=== PATIENT | male | born 1950 | race Caucasian/White ===

== ENCOUNTER 2018-10-01 15:14 | Emergency (ER) | payer BC ==
--- NOTE | 2018-10-01 15:34 | EDM.PDOC ---
ED HPI GENERAL MEDICAL PROBLEM - General Stated Complaint: ETOH Time Seen by Provider: 10/01/18 15:25 - History of Present Illness INITIAL COMMENTS - FREE TEXT/NARRATIVE: pt comes from home with his sister, basically asking asking for help with alcohol cessation , pt has Hx of DM, COPD, and heavy alcoholism, tells me he quit taking his medications about 3 months ago, and has been drinking heavily day and night , report gen weakness and poor feeding, denies recent head injuries, or hallucination or any suicidal ideations pt denies any other medical concerns. - Related Data Allergies Allergy/AdvReac Type Severity Reaction Status Date / Time No Known Allergies Allergy Verified 11/20/13 10:20 Home Meds: Home Meds Levothyroxine 112 mcg PO DAILY 11/20/13 [History] atorvaSTATin [Lipitor] 80 mg PO BEDTIME 11/20/13 [History] buPROPion [Wellbutrin] 75 mg PO BID 08/31/15 [History] Albuterol Sulfate [Proair Hfa] 2 puff IH Q6HR PRN 10/01/18 [History] Aspirin [Halfprin] 81 mg PO DAILY 10/01/18 [History] Cholecalciferol (Vitamin D3) [Vitamin D3] 2,000 unit PO DAILY 10/01/18 [History] FLUoxetine [PROzac] 40 mg PO DAILY 10/01/18 [History] Gabapentin [Neurontin] 300 mg PO BEDTIME 10/01/18 [History] Insulin Aspart [NovoLOG] 15 units SQ DAILY 10/01/18 [History] Insulin Degludec [Tresiba Flextouch U-200] 50 units SQ BEDTIME 10/01/18 [History ] Tiotropium [Spiriva] 18 mcg INH DAILY 10/01/18 [History] Topiramate 50 mg PO BEDTIME 10/01/18 [History] Past Medical History HEENT History: Reports: Epistaxis Cardiovascular History: Reports: Hypertension Neurological History: Reports: Neuropathy, Diabetic Psychiatric History: Reports: Other (See Below) Endocrine/Metabolic History: Reports: Diabetes, Type II, Hypothyroidism - Past Surgical History HEENT Surgical History: Reports: Naso-Sinus Surgery GI Surgical History: Reports: Hernia, Inguinal Social & Family History - Family History Cardiac: Reports: CAD, Hypertension Musculoskeletal: Reports: RA Endocrine/Metabolic: Reports: Diabetes, type II, Hypothyroidism ED ROS GENERAL - Review of Systems Review Of Systems: See Below Constitutional: Reports: Fatigue HEENT: Reports: No Symptoms Respiratory: Reports: No Symptoms Cardiovascular: Reports: Dyspnea on Exertion GI/Abdominal: Reports: No Symptoms Musculoskeletal: Reports: No Symptoms Skin: Reports: No Symptoms Neurological: Reports: No Symptoms Psychiatric: Reports: Depression. Denies: Hallucinations, Homicidal Ideation, Suicidal Ideation ED EXAM, GENERAL - Physical Exam Exam: See Below Exam Limited By: Other (pt appear mildy intoxicated, he is alert and oriented here.) Eye Exam: Bilateral Eye: Normal Inspection Throat/Mouth: Other (dry oral mucosa noted. ) Neck: Normal Inspection Respiratory/Chest: No Respiratory Distress, Lungs Clear, Normal Breath Sounds Cardiovascular: Normal Peripheral Pulses, Regular Rate, Rhythm, No Edema GI/Abdominal: Normal Bowel Sounds, Soft, Non-Tender Course - Vital Signs Text/Narrative:: pt was hydrated here with 1 liter NS, pt remained cooperative. labs results were reviewed, TSH elevated , pt is medically stable for out- patient mng and for detox, pt has no signs of suicidality . pt to resume usual home meds, will help pt arrange for transfer to Detox also patient was advised to plan a follow up with PCP. - Orders/Labs/Meds Orders: Active Orders 24 hr Category Date Time Status Sodium Chloride 0.9% [Normal Saline] 1,000 ml Med 10/01/18 15:45 Active IV .BOLUS Medication Orders Sodium Chloride (Normal Saline) 1,000 mls @ 999 drops/hr IV .BOLUS ONE Stop: 10/02/18 06:45 Last Admin: 10/01/18 15:56 Dose: 999 drops/hr Labs: Laboratory Tests 10/01/18 10/01/18 10/01/18 Range/Units 15:45 15:45 15:45 WBC 4.4 L (4.5-12.0) X10-3/uL RBC 4.41 (4.30-5.75) x10(6)uL Hgb 16.7 (13.5-17.8) g/dL Hct 48.8 (30.0-51.3) % MCV 110.7 H (80-96) fL MCH 37.8 H (27.7-33.6) pg MCHC 34.1 (32.2-35.4) g/dL RDW 14.0 (11.5-15.5) % Plt Count 156 (125-369) X10(3)uL MPV 8.2 (7.4-10.4) fL Neut % (Auto) 52.7 (46-82) % Lymph % (Auto) 38.1 H (13-37) % [place] % (Auto) 5.9 (4-12) % Eos % (Auto) 2 (1.0-5.0) % Baso % (Auto) 1 (0-2) % Neut # (Auto) 2.3 (1.6-8.3) # Lymph # (Auto) 1.7 (0.6-5.0) # [place] # (Auto) 0.3 (0.0-1.3) # Eos # (Auto) 0.1 (0.0-0.8) # Baso # (Auto) 0.0 (0.0-0.2) # Sodium 139 (135-145) mmol/L Potassium 3.9 (3.5-5.3) mmol/L Chloride 100 (100-110) mmol/L Carbon Dioxide 24 (21-32) mmol/L BUN 5 L (7-18) mg/dL Creatinine 0.9 (0.70-1.30) mg/dL Est Cr Clr Drug Dosing TNP Estimated GFR (MDRD) > 60 (>60) BUN/Creatinine Ratio 5.6 L (9-20) Glucose 162 H (80-116) mg/dL Calcium 8.8 (8.6-10.2) mg/dL Total Bilirubin 1.0 (0.1-1.3) mg/dL AST 206 H* (5-25) IU/L ALT 95 H (12-36) U/L Alkaline Phosphatase 106 (56-112) IU/L Total Protein 7.2 (6.0-8.0) g/dL Albumin 3.7 (3.2-4.6) g/dL Globulin 3.5 g/dL Albumin/Globulin Ratio 1.1 TSH, Ultra Sensitive (0.36-3.74) IU/mL Urine Color (YELLOW) Urine Appearance (CLEAR) Urine pH (5.0-6.5) Ur Specific [place] (1.010-1.025) Urine Protein (NEGATIVE) mg/dL Urine Glucose (UA) (NORMAL) mg/dL Urine Ketones (NEGATIVE) mg/dL Urine Occult Blood (NEGATIVE) Urine Nitrite (NEGATIVE) Urine Bilirubin (NEGATIVE) Urine Urobilinogen (NEGATIVE) mg/dL Ur Leukocyte Esterase (NEGATIVE) Urine RBC (0-5) Urine WBC (0-5) Ur Squamous Epith Cells (NS,R,O) Urine Bacteria (NS) Urine Opiates Screen (NEGATIVE) Ur Oxycodone Screen (NEGATIVE) Ur Propoxyphene Screen (NEGATIVE) Ur Barbituates Screen (NEGATIVE) Ur Tricyclics Screen (NEGATIVE) Ur Phencyclidine Scrn (NEGATIVE) Ur Amphetamine Screen (NEGATIVE) Urine MDMA Screen (NEGATIVE) U Benzodiazepines Scrn (NEGATIVE) U Cocaine Metab Screen (NEGATIVE) U Marijuana (THC) Screen (NEGATIVE) Ethyl Alcohol 0.19 H* (<0.03) % 10/01/18 10/01/18 10/01/18 Range/Units 15:45 17:07 17:07 WBC (4.5-12.0) X10-3/uL RBC (4.30-5.75) x10(6)uL Hgb (13.5-17.8) g/dL Hct (30.0-51.3) % MCV (80-96) fL MCH (27.7-33.6) pg MCHC (32.2-35.4) g/dL RDW (11.5-15.5) % Plt Count (125-369) X10(3)uL MPV (7.4-10.4) fL Neut % (Auto) (46-82) % Lymph % (Auto) (13-37) % [place] % (Auto) (4-12) % Eos % (Auto) (1.0-5.0) % Baso % (Auto) (0-2) % Neut # (Auto) (1.6-8.3) # Lymph # (Auto) (0.6-5.0) # [place] # (Auto) (0.0-1.3) # Eos # (Auto) (0.0-0.8) # Baso # (Auto) (0.0-0.2) # Sodium (135-145) mmol/L Potassium (3.5-5.3) mmol/L Chloride (100-110) mmol/L Carbon Dioxide (21-32) mmol/L BUN (7-18) mg/dL Creatinine (0.70-1.30) mg/dL Est Cr Clr Drug Dosing Estimated GFR (MDRD) (>60) BUN/Creatinine Ratio (9-20) Glucose (80-116) mg/dL Calcium (8.6-10.2) mg/dL Total Bilirubin (0.1-1.3) mg/dL AST (5-25) IU/L ALT (12-36) U/L Alkaline Phosphatase (56-112) IU/L Total Protein (6.0-8.0) g/dL Albumin (3.2-4.6) g/dL Globulin g/dL Albumin/Globulin Ratio TSH, Ultra Sensitive 11.15 H* (0.36-3.74) IU/mL Urine Color Yellow (YELLOW) Urine Appearance Clear (CLEAR) Urine pH 5.0 (5.0-6.5) Ur Specific [place] 1.010 (1.010-1.025) Urine Protein Negative (NEGATIVE) mg/dL Urine Glucose (UA) Normal (NORMAL) mg/dL Urine Ketones 15 H (NEGATIVE) mg/dL Urine Occult Blood Negative (NEGATIVE) Urine Nitrite Negative (NEGATIVE) Urine Bilirubin Negative (NEGATIVE) Urine Urobilinogen Normal (NEGATIVE) mg/dL Ur Leukocyte Esterase Negative (NEGATIVE) Urine RBC Not seen (0-5) Urine WBC 0-5 (0-5) Ur Squamous Epith Cells Rare (NS,R,O) Urine Bacteria Rare H (NS) Urine Opiates Screen Negative (NEGATIVE) Ur Oxycodone Screen Negative (NEGATIVE) Ur Propoxyphene Screen Negative (NEGATIVE) Ur Barbituates Screen Negative (NEGATIVE) Ur Tricyclics Screen Negative (NEGATIVE) Ur Phencyclidine Scrn Negative (NEGATIVE) Ur Amphetamine Screen Negative (NEGATIVE) Urine MDMA Screen Negative (NEGATIVE) U Benzodiazepines Scrn Negative (NEGATIVE) U Cocaine Metab Screen Negative (NEGATIVE) U Marijuana (THC) Screen Positive H (NEGATIVE) Ethyl Alcohol (<0.03) % Meds: Medications Generic Name Dose Route Start Last Admin Trade Name Freq PRN Reason Stop Dose Admin Sodium Chloride 1,000 mls @ 999 drops/hr 10/01/18 15:45 10/01/18 15:56 Normal Saline IV 10/02/18 06:45 999 drops/hr .BOLUS ONE Administration Departure - Departure Time of Disposition: 18:32 Disposition: DC/Tfer to Other 70 Clinical Impression: Alcohol abuse - Discharge Information Referrals: Cholo Magallon MD [Primary Care Provider] - - My Orders Last 24 Hours: My Active Orders 10/01/18 15:45 Sodium Chloride 0.9% [Normal Saline] 1,000 ml IV .BOLUS - Assessment/Plan Last 24 Hours: My Active Orders 10/01/18 15:45 Sodium Chloride 0.9% [Normal Saline] 1,000 ml IV .BOLUS
[2018-10-01] MEDS ORDERED: Sodium Chloride 0.9% 1,000 ML IV ONE (15:45)
[2018-10-01 20:45] VITALS: BP 121/78
== END 2018-10-01 18:59 | disposition other institution (70) ==
LOC: FB.ED 15:14
DX: F10.20 Alcohol dependence, uncomplicated (principal); I10 Essential (primary) hypertension; E11.9 Type 2 diabetes mellitus without complications; E03.9 Hypothyroidism, unspecified; E11.40 Type 2 diabetes mellitus with diabetic neuropathy, unspecified; Z79.899 Other long term (current) drug therapy; Z79.4 Long term (current) use of insulin
CPT/HCPCS: 36415; 80053; 80305; 81001; 84443; 85025; 96360; 99284; G0480; J7030

== ENCOUNTER 2023-02-03 04:08 | Inpatient (IN) | payer MEDICARE, OTHER ==
[2023-02-03] MEDS ORDERED: Ondansetron 4 MG/2 ML SDV IVPUSH ONE ×2 (04:09→06:09)
[2023-02-03] MEDS ORDERED: Sodium Chloride 0.9% 1,000 ML IV SCH ×2 (04:15→06:15)
[2023-02-03] MEDS ORDERED: 50% Dextrose in Water 50 ML Syringe IVPUSH PRN (04:29)
[2023-02-03] MEDS ORDERED: Glucagon,Human Recombinant 1 MG Vial IM PRN (04:29)
[2023-02-03] MEDS ORDERED: Insulin Lispro 100 Unit/ML 3 ML KwikPen SUBCUT ONE ×2 (04:30→04:35)
[2023-02-03 04:34] LABS: BASOPHILS PERCENT AUTO 0.2 % (0.3-3.8); HEMATOCRIT 44.5 % (38.3-50.1); LYMPHOCYTES ABSOLUTE AUTO 0.5 x10-3/uL (0.5-4.5); LYMPHOCYTES PERCENT AUTO 5.4 % (15.8-45.3); MEAN CORPUSCULAR HEMOGLOBIN 39.8 pg (27.0-33.3); MEAN CORPUSCULAR HGB CONC 33.7 g/dL (28.7-35.3); MEAN CORPUSCULAR VOLUME 118.1 fL (80.8-98.7); MEAN PLATELET VOLUME 8.3 fL (6.7-11.0); MONOCYTES ABSOLUTE AUTO 1.1 x10-3/uL (0.0-1.2); MONOCYTES PERCENT AUTO 12.4 % (5.5-15.2); PLATELET COUNT,PLT 150 x10(3)uL (117-477); RED BLOOD CELL COUNT 3.77 x10(6)uL (3.90-5.90); RED CELL DISTRIBUTION WIDTH 16.3 % (12.4-15.0); WHITE BLOOD CELL COUNT,WBC 8.6 x10-3/uL (3.2-10.1)
[2023-02-03 04:42] LABS: A/G RATIO 1.3; ALANINE AMINOTRANSFERASE,ALT 36 U/L (12-36); ALBUMIN 4.8 g/dL (3.2-4.6); ALKALINE PHOSPHATASE 99 IU/L (56-112); ASPARTATE AMNIOTRANSFERASE,AST 127 IU/L (5-25); BLOOD UREA NITROGEN,BUN 14 mg/dL (7-18); BUN/CREATININE RATIO 8.2 (9-20); CALCIUM 8.9 mg/dL (8.6-10.2); CHLORIDE,CL 92 mmol/L (100-110); CREATININE 1.7 mg/dL (0.70-1.30); ESTIMATED GFR 43 mL/min (>60); POTASSIUM,K 4.1 mmol/L (3.5-5.3); PROTEIN TOTAL,TP 8.4 g/dL (6.0-8.0); SODIUM,NA 139 mmol/L (135-145)
[2023-02-03 04:43] LABS: CARBON DIOXIDE,CO2 10 mmol/L (21-32)
[2023-02-03 04:44] LABS: GLUCOSE RANDOM 463 mg/dL (80-116)
[2023-02-03 06:06] LABS: LACTIC ACID 8.4 mmol/L (0.4-2.0)
[2023-02-03] MEDS ORDERED: LORazepam 2 MG/ML SDV IVPUSH ONE ×2 (06:09→06:13)
[2023-02-03] MEDS ORDERED: Thiamine 200 MG/2 ML MDV IVPUSH STA (06:14)
[2023-02-03 06:28] LABS: MAGNESIUM 2.3 mg/dL (1.8-2.5)
[2023-02-03] MEDS ORDERED: Pantoprazole 40 MG Vial IVPUSH ONE (06:38)
[2023-02-03 06:52] LABS: BASE EXCESS VENOUS,POC -20 mmol/L (-2 - 3+); PCO2 VENOUS,POC 20 mmHg (41-51); PH VENOUS,POC 7.15 pH Units (7.32-7.43)
[2023-02-03] MEDS ORDERED: Sodium Bicarbonate 8.4% 50 MEQ/50 ML Syringe IVPUSH ONE (06:59)
[2023-02-03] MEDS ORDERED: Levothyroxine 112 MCG Tab PO STA (07:53)
[2023-02-03] MEDS ORDERED: Morphine 4 MG/ML VIAL IVPUSH ONE (07:57)
[2023-02-03] MEDS: Sodium Chloride 0.9% 1,000 ML IV SCH ×3 (07:58→22:20)
[2023-02-03] MEDS ORDERED: Iopamidol 755 Mg/ML 100 ML Bottle IV SCH (09:45)
[2023-02-03 13:12] LABS: BILIRUBIN,URINE NEGATIVE (NEGATIVE); GLUCOSE,URINE 250 mg/dL (NORMAL); KETONES,URINE 150 mg/dL (NEGATIVE); LEUKOCYTE ESTERASE,URINE NEGATIVE (NEGATIVE); NITRITE,URINE NEGATIVE (NEGATIVE); OCCULT BLOOD,URINE MODERATE (NEGATIVE); PROTEIN,URINE NEGATIVE (NEGATIVE); UROBILINOGEN,URINE 1 mg/dL (NEGATIVE)
[2023-02-03 13:16] LABS: APPEARANCE,URINE SLIGHTLY CLOUDY (CLEAR); BACTERIA,URINE FEW (NS); COLOR,URINE YELLOW (YELLOW); RBC,URINE 0-5 (0-5); SQUAMOUS EPITHELIAL CELLS,UR FEW (NS,R,O); WBC,URINE 0-5 (0-5)
[2023-02-03 13:18] LABS: LACTIC ACID 3.3 mmol/L (0.4-2.0)
[2023-02-03] MEDS ORDERED: LORazepam 2 MG/ML SDV IV SCH (15:15)
[2023-02-03] MEDS ORDERED: LORazepam 1 MG Tab PO SCH (15:15)
[2023-02-03 15:33] LABS: BLOOD UREA NITROGEN,BUN 14 mg/dL (7-18); BUN/CREATININE RATIO 15.6 (9-20); CALCIUM 7.9 mg/dL (8.6-10.2); CARBON DIOXIDE,CO2 17 mmol/L (21-32); CHLORIDE,CL 100 mmol/L (100-110); CREATININE 0.9 mg/dL (0.70-1.30); EST CRCL DRUG DOSING (CG) 81.19 mL/min; ESTIMATED GFR 92 mL/min (>60); GLUCOSE RANDOM 208 mg/dL (80-116); POTASSIUM,K 3.4 mmol/L (3.5-5.3); SODIUM,NA 138 mmol/L (135-145)
[2023-02-03 15:40] LABS: BASE EXCESS VENOUS,POC -8 mmol/L (-2 - 3+); PCO2 VENOUS,POC 25 mmHg (41-51)
[2023-02-03 15:47] LABS: LACTIC ACID 2.1 mmol/L (0.4-2.0)
[2023-02-03] MEDS ORDERED: NS + KCl 20mEq/L 1,000 ML IV SCH (18:00)
[2023-02-04 06:40] LABS: BASOPHILS PERCENT AUTO 0.1 % (0.3-3.8); HEMATOCRIT 30.6 % (38.3-50.1); HEMOGLOBIN 10.7 g/dL (12.9-17.7); LYMPHOCYTES ABSOLUTE AUTO 0.4 x10-3/uL (0.5-4.5); MEAN CORPUSCULAR HEMOGLOBIN 40.1 pg (27.0-33.3); MEAN CORPUSCULAR VOLUME 114.6 fL (80.8-98.7); MEAN PLATELET VOLUME 8.2 fL (6.7-11.0); MONOCYTES ABSOLUTE AUTO 0.7 x10-3/uL (0.0-1.2); MONOCYTES PERCENT AUTO 13.1 % (5.5-15.2); NEUTROPHILS PERCENT AUTO 78.8 % (40.3-71.8); PLATELET COUNT,PLT 63 x10(3)uL (117-477); RED BLOOD CELL COUNT 2.67 x10(6)uL (3.90-5.90); RED CELL DISTRIBUTION WIDTH 16.5 % (12.4-15.0); WHITE BLOOD CELL COUNT,WBC 5.1 x10-3/uL (3.2-10.1)
[2023-02-04 06:48] LABS: BLOOD UREA NITROGEN,BUN 12 mg/dL (7-18); CALCIUM 7.9 mg/dL (8.6-10.2); CARBON DIOXIDE,CO2 19 mmol/L (21-32); CHLORIDE,CL 105 mmol/L (100-110); CREATININE 0.8 mg/dL (0.70-1.30); EST CRCL DRUG DOSING (CG) 91.34 mL/min; ESTIMATED GFR 95 mL/min (>60); GLUCOSE RANDOM 159 mg/dL (80-116); MAGNESIUM 1.7 mg/dL (1.8-2.5); POTASSIUM,K 3.2 mmol/L (3.5-5.3); SODIUM,NA 142 mmol/L (135-145)
[2023-02-04] MEDS: Sodium Chloride 0.9% 1,000 ML IV SCH ×2 (07:28→16:57)
[2023-02-04] MEDS ORDERED: Iopamidol 755 Mg/ML 100 ML Bottle IV ONE (08:10)
[2023-02-04] MEDS ORDERED: 50% Dextrose in Water 50 ML Syringe IVPUSH PRN (11:00)
[2023-02-04] MEDS ORDERED: Glucagon,Human Recombinant 1 MG Vial IM PRN (11:00)
[2023-02-04] MEDS ORDERED: Levothyroxine 112 MCG Tab PO ONE (11:03)
[2023-02-04] MEDS: Insulin Lispro 100 Unit/ML 3 ML KwikPen SUBCUT SCH ×2 (11:26→18:07)
[2023-02-04] MEDS: Sodium Chloride 0.9% 10 ML Syringe FLUSH PRN (11:28)
[2023-02-04] MEDS: Potassium Chloride 20 MEQ Tab.ER PO SCH ×2 (11:28→20:21)
[2023-02-04] MEDS: Pantoprazole 40 MG Vial IVPUSH SCH ×2 (11:29→22:46)
[2023-02-04] MEDS: Enoxaparin 40 MG/0.4 ML Syringe SUBCUT SCH ×2 (11:42→11:57)
[2023-02-04] MEDS ORDERED: NEOMYCIN TOP PRN (12:12)
[2023-02-04] MEDS ORDERED: [UNRECOGNIZED DRUG - OTHER] TOP PRN (12:12)
[2023-02-04] MEDS ORDERED: BACITRACIN TOP PRN (12:12)
[2023-02-04] MEDS ORDERED: HYDROCORTISONE TOP PRN (12:12)
[2023-02-04] MEDS: Hydrocortisone 2.5% Crm 30 GM Tube TOP PRN (14:24)
[2023-02-04] MEDS ORDERED: Sennosides/Docusate Sodium 50-8.6 MG Tab PO PRN (14:27)
[2023-02-04] MEDS: Polyethylene Glycol 3350 Powder 17 GM Packet PO PRN (14:41)
[2023-02-04] MEDS ORDERED: Sodium Phosphate,Monobasic/Sodium Phosphate,Dibasic Enema 133 ML Bottle RECTAL ONE (19:32)
[2023-02-04] MEDS: Thiamine 100 MG Tab PO SCH (20:21)
[2023-02-05] MEDS: Sodium Chloride 0.9% 1,000 ML IV SCH (02:54)
[2023-02-05] MEDS ORDERED: Bisacodyl 5 MG Tab PO PRN (04:42)
[2023-02-05] MEDS: Levothyroxine 112 MCG Tab PO SCH (05:00)
[2023-02-05 06:38] LABS: BASOPHILS PERCENT AUTO 0.2 % (0.3-3.8); EOSINOPHILS PERCENT AUTO 0.1 % (0.1-6.8); HEMATOCRIT 30.9 % (38.3-50.1); HEMOGLOBIN 10.9 g/dL (12.9-17.7); LYMPHOCYTES ABSOLUTE AUTO 0.5 x10-3/uL (0.5-4.5); LYMPHOCYTES PERCENT AUTO 10.8 % (15.8-45.3); MEAN CORPUSCULAR HEMOGLOBIN 39.9 pg (27.0-33.3); MEAN CORPUSCULAR HGB CONC 35.4 g/dL (28.7-35.3); MEAN CORPUSCULAR VOLUME 112.7 fL (80.8-98.7); MEAN PLATELET VOLUME 8.7 fL (6.7-11.0); MONOCYTES ABSOLUTE AUTO 0.5 x10-3/uL (0.0-1.2); NEUTROPHILS ABSOLUTE AUTO 3.8 x10-3/uL (1.7-6.9); NEUTROPHILS PERCENT AUTO 78.9 % (40.3-71.8); PLATELET COUNT,PLT 56 x10(3)uL (117-477); RED BLOOD CELL COUNT 2.74 x10(6)uL (3.90-5.90); RED CELL DISTRIBUTION WIDTH 16.2 % (12.4-15.0); WHITE BLOOD CELL COUNT,WBC 4.8 x10-3/uL (3.2-10.1)
[2023-02-05 06:47] LABS: A/G RATIO 1.2; ALANINE AMINOTRANSFERASE,ALT 18 U/L (12-36); ALBUMIN 3.1 g/dL (3.2-4.6); ALKALINE PHOSPHATASE 63 IU/L (56-112); ASPARTATE AMNIOTRANSFERASE,AST 53 IU/L (5-25); BILIRUBIN TOTAL 1.7 mg/dL (0.1-1.3); BLOOD UREA NITROGEN,BUN 6 mg/dL (7-18); BUN/CREATININE RATIO 8.6 (9-20); CALCIUM 7.7 mg/dL (8.6-10.2); CARBON DIOXIDE,CO2 24 mmol/L (21-32); CHLORIDE,CL 103 mmol/L (100-110); CREATININE 0.7 mg/dL (0.70-1.30); EST CRCL DRUG DOSING (CG) 104.39 mL/min; ESTIMATED GFR 99 mL/min (>60); GLUCOSE RANDOM 164 mg/dL (80-116); MAGNESIUM 1.5 mg/dL (1.8-2.5); PROTEIN TOTAL,TP 5.7 g/dL (6.0-8.0); SODIUM,NA 139 mmol/L (135-145)
[2023-02-05 06:57] LABS: POTASSIUM,K 2.8 mmol/L (3.5-5.3)
[2023-02-05] MEDS: Potassium Chloride 20 MEQ Tab.ER PO SCH ×2 (09:08→20:02)
[2023-02-05] MEDS: Insulin Lispro 100 Unit/ML 3 ML KwikPen SUBCUT SCH ×3 (09:09→17:46)
[2023-02-05] MEDS ORDERED: Magnesium Sulfate/Water 2 GM in Premix Bag 1 BAG IV ONE (09:27)
[2023-02-05] MEDS ORDERED: Potassium Chloride 20 MEQ Tab.ER PO ONE (09:28)
[2023-02-05] MEDS ORDERED: Albuterol 90 MCG/6.7 GM Inhaler INH PRN (11:11)
[2023-02-05] MEDS: Pantoprazole 40 MG Vial IVPUSH SCH (11:12)
[2023-02-05] MEDS: Sodium Chloride 0.9% 10 ML Syringe FLUSH PRN (11:12)
[2023-02-05] MEDS ORDERED: Gabapentin 300 MG Cap PO SCH (11:15)
[2023-02-05] MEDS: Aspirin 81 MG Tab.EC PO SCH (12:15)
[2023-02-05] MEDS: Cholecalciferol (Vitamin D3) 25 MCG Tab PO SCH (12:15)
[2023-02-05] MEDS ORDERED: Tiotropium Bromide 4 GM Inhalation Spray (2.5mcg/1 dose; 10 doses) INH SCH (18:30)
[2023-02-05] MEDS: Polyethylene Glycol 3350 Powder 17 GM Packet PO PRN (20:00)
[2023-02-05] MEDS: atorvaSTATin 40 MG Tab PO SCH (20:01)
[2023-02-05] MEDS: Thiamine 100 MG Tab PO SCH (20:01)
[2023-02-05] MEDS: Gabapentin 300 MG Cap PO SCH (20:02)
[2023-02-05] MEDS ORDERED: Insulin Glargine,Human Rec. Analog 100 Units/ML 3 ML Pen SUBCUT ONE (20:09)
[2023-02-05] MEDS: Hydrocortisone 2.5% Crm 30 GM Tube TOP PRN (20:12)
[2023-02-05] MEDS ORDERED: Insulin Glargine,Human Rec. Analog 100 Units/ML 3 ML Pen SUBCUT SCH (21:00)
[2023-02-05] MEDS: Topiramate 50 MG Tab PO SCH (22:06)
[2023-02-05] MEDS ORDERED: Acetaminophen 325 MG Tab PO PRN (22:12)
[2023-02-06 06:36] LABS: BASOPHILS PERCENT AUTO 0.1 % (0.3-3.8); EOSINOPHILS PERCENT AUTO 0.9 % (0.1-6.8); HEMOGLOBIN 10.3 g/dL (12.9-17.7); LYMPHOCYTES ABSOLUTE AUTO 0.6 x10-3/uL (0.5-4.5); MEAN CORPUSCULAR HEMOGLOBIN 39.8 pg (27.0-33.3); MEAN CORPUSCULAR HGB CONC 35.6 g/dL (28.7-35.3); MEAN CORPUSCULAR VOLUME 111.9 fL (80.8-98.7); MEAN PLATELET VOLUME 8.8 fL (6.7-11.0); MONOCYTES ABSOLUTE AUTO 0.3 x10-3/uL (0.0-1.2); MONOCYTES PERCENT AUTO 5.9 % (5.5-15.2); NEUTROPHILS ABSOLUTE AUTO 3.6 x10-3/uL (1.7-6.9); NEUTROPHILS PERCENT AUTO 80.1 % (40.3-71.8); PLATELET COUNT,PLT 69 x10(3)uL (117-477); RED BLOOD CELL COUNT 2.59 x10(6)uL (3.90-5.90); RED CELL DISTRIBUTION WIDTH 16.7 % (12.4-15.0); WHITE BLOOD CELL COUNT,WBC 4.5 x10-3/uL (3.2-10.1)
[2023-02-06 06:46] LABS: BLOOD UREA NITROGEN,BUN 8 mg/dL (7-18); BUN/CREATININE RATIO 11.4 (9-20); CARBON DIOXIDE,CO2 26 mmol/L (21-32); CHLORIDE,CL 101 mmol/L (100-110); CREATININE 0.7 mg/dL (0.70-1.30); EST CRCL DRUG DOSING (CG) 104.39 mL/min; ESTIMATED GFR 99 mL/min (>60); GLUCOSE RANDOM 190 mg/dL (80-116); MAGNESIUM 1.9 mg/dL (1.8-2.5); SODIUM,NA 134 mmol/L (135-145)
[2023-02-06 06:51] LABS: POTASSIUM,K 2.7 mmol/L (3.5-5.3)
[2023-02-06] MEDS ORDERED: Albuterol 90 MCG/6.7 GM Inhaler INH PRN (07:46)
[2023-02-06] MEDS: Gabapentin 600 MG Tab PO SCH (10:00)
[2023-02-06] MEDS: Potassium Chloride 20 MEQ Tab.ER PO SCH ×3 (10:00→21:02)
[2023-02-06] MEDS: Pantoprazole 40 MG Tab.CR PO SCH (10:01)
[2023-02-06] MEDS: Cholecalciferol (Vitamin D3) 25 MCG Tab PO SCH (10:01)
[2023-02-06] MEDS: Aspirin 81 MG Tab.EC PO SCH (10:01)
[2023-02-06] MEDS: Tiotropium Bromide 4 GM Inhalation Spray (2.5mcg/1 dose; 10 doses) INH SCH (10:02)
[2023-02-06] MEDS: Levothyroxine 112 MCG Tab PO SCH (10:10)
[2023-02-06] MEDS ORDERED: Insulin Lispro 100 Unit/ML 3 ML KwikPen SUBCUT ONE (10:14)
[2023-02-06] MEDS: Insulin Lispro 100 Unit/ML 3 ML KwikPen SUBCUT SCH ×3 (10:15→17:48)
[2023-02-06] MEDS: Hydrocortisone 2.5% Crm 30 GM Tube TOP PRN (10:21)
[2023-02-06] MEDS: Acetaminophen 325 MG Tab PO PRN ×2 (10:25→22:13)
[2023-02-06] MEDS ORDERED: Nicotine 21 MG/24 Hr Patch TRDERM SCH (17:30)
[2023-02-06] MEDS: Gabapentin 300 MG Cap PO SCH (20:56)
[2023-02-06] MEDS: Insulin Glargine,Human Rec. Analog 100 Units/ML 3 ML Pen SUBCUT SCH (20:58)
[2023-02-06] MEDS: Topiramate 50 MG Tab PO SCH (21:01)
[2023-02-06] MEDS: atorvaSTATin 40 MG Tab PO SCH (21:01)
[2023-02-06] MEDS: Thiamine 100 MG Tab PO SCH (21:02)
[2023-02-06] MEDS: Albuterol 6.7 GM Inhaler INH PRN (22:19)
[2023-02-07] MEDS: Melatonin 3 MG Tab PO PRN ×2 (02:23→20:41)
[2023-02-07] MEDS: Levothyroxine 112 MCG Tab PO SCH (05:36)
[2023-02-07 06:44] LABS: HEMATOCRIT 29.2 % (38.3-50.1); HEMOGLOBIN 10.3 g/dL (12.9-17.7); MEAN CORPUSCULAR HGB CONC 35.1 g/dL (28.7-35.3); MEAN CORPUSCULAR VOLUME 113.7 fL (80.8-98.7); MEAN PLATELET VOLUME 9.3 fL (6.7-11.0); PLATELET COUNT,PLT 85 x10(3)uL (117-477); RED BLOOD CELL COUNT 2.57 x10(6)uL (3.90-5.90); RED CELL DISTRIBUTION WIDTH 16.6 % (12.4-15.0); WHITE BLOOD CELL COUNT,WBC 4.7 x10-3/uL (3.2-10.1)
[2023-02-07 06:47] LABS: BLOOD UREA NITROGEN,BUN 6 mg/dL (7-18); BUN/CREATININE RATIO 8.6 (9-20); CALCIUM 8.6 mg/dL (8.6-10.2); CARBON DIOXIDE,CO2 27 mmol/L (21-32); CHLORIDE,CL 103 mmol/L (100-110); CREATININE 0.7 mg/dL (0.70-1.30); EST CRCL DRUG DOSING (CG) 104.39 mL/min; ESTIMATED GFR 99 mL/min (>60); GLUCOSE RANDOM 217 mg/dL (80-116); POTASSIUM,K 5.1 mmol/L (3.5-5.3); SODIUM,NA 136 mmol/L (135-145)
[2023-02-07 07:15] LABS: ANISOCYTOSIS FEW; EOSINOPHILS PERCENT MAN 3 % (0-5); LYMPHOCYTES PERCENT MAN 16 % (13-37); MONOCYTES PERCENT MAN 10 % (4-12); SEG NEUTROPHILS PERCENT MAN 71 % (46-82)
[2023-02-07] MEDS: Insulin Lispro 100 Unit/ML 3 ML KwikPen SUBCUT SCH ×3 (07:40→18:22)
[2023-02-07] MEDS: Pantoprazole 40 MG Tab.CR PO SCH (09:01)
[2023-02-07] MEDS: Potassium Chloride 20 MEQ Tab.ER PO SCH ×2 (09:01→20:29)
[2023-02-07] MEDS: Aspirin 81 MG Tab.EC PO SCH (09:01)
[2023-02-07] MEDS: Cholecalciferol (Vitamin D3) 25 MCG Tab PO SCH (09:02)
[2023-02-07] MEDS: Gabapentin 600 MG Tab PO SCH (09:03)
[2023-02-07] MEDS: Tiotropium Bromide 4 GM Inhalation Spray (2.5mcg/1 dose; 10 doses) INH SCH (09:04)
[2023-02-07] MEDS: Albuterol 6.7 GM Inhaler INH PRN (13:38)
[2023-02-07] MEDS: Acetaminophen 325 MG Tab PO PRN (17:52)
[2023-02-07] MEDS ORDERED: Nicotine 21 MG/24 Hr Patch TRDERM SCH (18:00)
[2023-02-07] MEDS: atorvaSTATin 40 MG Tab PO SCH (20:29)
[2023-02-07] MEDS: Topiramate 50 MG Tab PO SCH (20:29)
[2023-02-07] MEDS: Gabapentin 300 MG Cap PO SCH (20:29)
[2023-02-07] MEDS: Thiamine 100 MG Tab PO SCH (20:30)
[2023-02-07] MEDS: Insulin Glargine,Human Rec. Analog 100 Units/ML 3 ML Pen SUBCUT SCH (20:30)
[2023-02-08] MEDS: Levothyroxine 112 MCG Tab PO SCH (05:37)
[2023-02-08 06:16] LABS: BASOPHILS PERCENT AUTO 0.3 % (0.3-3.8); EOSINOPHILS ABSOLUTE AUTO 0.2 x10-3/uL (0.0-0.6); EOSINOPHILS PERCENT AUTO 3.5 % (0.1-6.8); HEMATOCRIT 31.5 % (38.3-50.1); HEMOGLOBIN 11.1 g/dL (12.9-17.7); LYMPHOCYTES ABSOLUTE AUTO 0.7 x10-3/uL (0.5-4.5); LYMPHOCYTES PERCENT AUTO 13.6 % (15.8-45.3); MEAN CORPUSCULAR HEMOGLOBIN 40.1 pg (27.0-33.3); MEAN CORPUSCULAR HGB CONC 35.2 g/dL (28.7-35.3); MEAN PLATELET VOLUME 9.3 fL (6.7-11.0); MONOCYTES PERCENT AUTO 19.9 % (5.5-15.2); NEUTROPHILS ABSOLUTE AUTO 3.1 x10-3/uL (1.7-6.9); NEUTROPHILS PERCENT AUTO 62.7 % (40.3-71.8); PLATELET COUNT,PLT 121 x10(3)uL (117-477); RED BLOOD CELL COUNT 2.77 x10(6)uL (3.90-5.90); RED CELL DISTRIBUTION WIDTH 16.8 % (12.4-15.0)
[2023-02-08 06:23] LABS: BLOOD UREA NITROGEN,BUN 5 mg/dL (7-18); BUN/CREATININE RATIO 7.1 (9-20); CALCIUM 8.5 mg/dL (8.6-10.2); CARBON DIOXIDE,CO2 25 mmol/L (21-32); CHLORIDE,CL 104 mmol/L (100-110); CREATININE 0.7 mg/dL (0.70-1.30); EST CRCL DRUG DOSING (CG) 104.39 mL/min; ESTIMATED GFR 99 mL/min (>60); GLUCOSE RANDOM 188 mg/dL (80-116); POTASSIUM,K 3.7 mmol/L (3.5-5.3); SODIUM,NA 137 mmol/L (135-145)
[2023-02-08 07:49] VITALS: BP 100/62; PULSE 62
[2023-02-08] MEDS: Insulin Lispro 100 Unit/ML 3 ML KwikPen SUBCUT SCH (07:52)
[2023-02-08] MEDS: Gabapentin 600 MG Tab PO SCH (09:12)
[2023-02-08] MEDS: Cholecalciferol (Vitamin D3) 25 MCG Tab PO SCH (09:13)
[2023-02-08] MEDS: Pantoprazole 40 MG Tab.CR PO SCH (09:13)
[2023-02-08] MEDS: Aspirin 81 MG Tab.EC PO SCH (09:13)
[2023-02-08] MEDS: Potassium Chloride 20 MEQ Tab.ER PO SCH (09:13)
[2023-02-08] MEDS: Tiotropium Bromide 4 GM Inhalation Spray (2.5mcg/1 dose; 10 doses) INH SCH (09:14)
== END 2023-02-08 09:15 | disposition swing bed (61) | DRG 439 ==
LOC: FB.ED 04:08 → FB.MS 12:07 → UNDOADMIN 12:07
PROVIDERS: ADMIT Emergency Medicine; ATTEND Student in an Organized Health Care Education/Training Program
DX: K85.20 Alcohol induced acute pancreatitis without necrosis or infection (principal); E87.20 Acidosis, unspecified; F10.139 Alcohol abuse with withdrawal, unspecified; K56.1 Intussusception; I20.0 Unstable angina; D69.6 Thrombocytopenia, unspecified; K59.09 Other constipation; R29.6 Repeated falls; I10 Essential (primary) hypertension; E11.40 Type 2 diabetes mellitus with diabetic neuropathy, unspecified; E03.9 Hypothyroidism, unspecified; E11.65 Type 2 diabetes mellitus with hyperglycemia; F32.A Depression, unspecified; E83.42 Hypomagnesemia; E87.6 Hypokalemia; J43.9 Emphysema, unspecified; K59.00 Constipation, unspecified; Z79.4 Long term (current) use of insulin; Z79.899 Other long term (current) drug therapy; Z79.82 Long term (current) use of aspirin; Z79.51 Long term (current) use of inhaled steroids; Z98.890 Other specified postprocedural states; Z83.3 Family history of diabetes mellitus
CPT/HCPCS: 36415; 70450; 71045; 74018; 74177; 80048; 80053; 80307; 81001; 82150; 82550; 82947; 83605; 83690; 83735; 84100; 84443; 84484; 85025; 85730; 87040; 93005; 93010; 97165-GO; 99223; 99232; 99239; 99284; A9270-GY; C9113; J1815; J1815-GY; J2060; J2270; J2405; J3411; J3475; J3480; J3490; J7030; Q9967

== ENCOUNTER 2023-02-08 08:01 | Inpatient (IN) | payer MEDICARE, OTHER ==
[2023-02-08] MEDS ORDERED: Bisacodyl 5 MG Tab PO PRN (12:47)
[2023-02-08] MEDS ORDERED: 50% Dextrose in Water 50 ML Syringe IVPUSH PRN (12:50)
[2023-02-08] MEDS ORDERED: Glucagon,Human Recombinant 1 MG Vial IM PRN (12:50)
[2023-02-08] MEDS: Insulin Lispro 100 Unit/ML 3 ML KwikPen SUBCUT SCH (18:20)
[2023-02-08] MEDS: Nicotine 21 MG/24 Hr Patch TRDERM SCH (18:21)
[2023-02-08] MEDS: Albuterol 90 MCG/6.7 GM Inhaler INH PRN (20:28)
[2023-02-08] MEDS: Insulin Glargine,Human Rec. Analog 100 Units/ML 3 ML Pen SUBCUT SCH (20:31)
[2023-02-08] MEDS: Potassium Chloride 20 MEQ Tab.ER PO SCH (20:31)
[2023-02-08] MEDS: Gabapentin 300 MG Cap PO SCH (20:32)
[2023-02-08] MEDS: atorvaSTATin 40 MG Tab PO SCH (20:32)
[2023-02-08] MEDS: Topiramate 50 MG Tab PO SCH (20:33)
[2023-02-08] MEDS: Thiamine 100 MG Tab PO SCH (20:34)
[2023-02-08] MEDS: Acetaminophen 325 MG Tab PO PRN (20:44)
[2023-02-09] MEDS: Levothyroxine 112 MCG Tab PO SCH (05:41)
[2023-02-09] MEDS: Insulin Lispro 100 Unit/ML 3 ML KwikPen SUBCUT SCH ×3 (08:43→18:22)
[2023-02-09] MEDS: Pantoprazole 40 MG Tab.CR PO SCH (10:18)
[2023-02-09] MEDS: Cholecalciferol (Vitamin D3) 25 MCG Tab PO SCH (10:18)
[2023-02-09] MEDS: Aspirin 81 MG Tab.EC PO SCH (10:19)
[2023-02-09] MEDS: Tiotropium Bromide 4 GM Inhalation Spray (2.5mcg/1 dose; 10 doses) INH SCH (10:19)
[2023-02-09] MEDS: Gabapentin 600 MG Tab PO SCH (10:19)
[2023-02-09] MEDS: Potassium Chloride 20 MEQ Tab.ER PO SCH ×2 (10:19→20:06)
[2023-02-09 10:26] LABS: BILIRUBIN,URINE NEGATIVE (NEGATIVE); GLUCOSE,URINE NORMAL (NORMAL); KETONES,URINE NEGATIVE (NEGATIVE); LEUKOCYTE ESTERASE,URINE NEGATIVE (NEGATIVE); NITRITE,URINE NEGATIVE (NEGATIVE); OCCULT BLOOD,URINE NEGATIVE (NEGATIVE); PROTEIN,URINE NEGATIVE (NEGATIVE); UROBILINOGEN,URINE 1 mg/dL (NEGATIVE)
[2023-02-09 10:36] LABS: APPEARANCE,URINE SLIGHTLY CLOUDY (CLEAR); BACTERIA,URINE FEW (NS); COLOR,URINE YELLOW (YELLOW); SQUAMOUS EPITHELIAL CELLS,UR FEW (NS,R,O); WBC,URINE 0-5 (0-5)
[2023-02-09] MEDS: Hydrocortisone 2.5% Crm 30 GM Tube TOP PRN (16:03)
[2023-02-09] MEDS: Nicotine 21 MG/24 Hr Patch TRDERM SCH (17:44)
[2023-02-09] MEDS: Thiamine 100 MG Tab PO SCH (20:06)
[2023-02-09] MEDS: Melatonin 3 MG Tab PO SCH (20:06)
[2023-02-09] MEDS: atorvaSTATin 40 MG Tab PO SCH (20:06)
[2023-02-09] MEDS: Topiramate 50 MG Tab PO SCH (20:06)
[2023-02-09] MEDS: Gabapentin 300 MG Cap PO SCH (20:06)
[2023-02-09] MEDS: Polyethylene Glycol 3350 Powder 17 GM Packet PO PRN (20:07)
[2023-02-09] MEDS: Insulin Glargine,Human Rec. Analog 100 Units/ML 3 ML Pen SUBCUT SCH (20:12)
[2023-02-10] MEDS: Acetaminophen 325 MG Tab PO PRN ×2 (01:06→20:51)
[2023-02-10] MEDS: Albuterol 90 MCG/6.7 GM Inhaler INH PRN ×2 (01:10→21:05)
[2023-02-10] MEDS: Levothyroxine 112 MCG Tab PO SCH (05:44)
[2023-02-10] MEDS: Insulin Lispro 100 Unit/ML 3 ML KwikPen SUBCUT SCH ×3 (08:07→18:00)
[2023-02-10] MEDS: Aspirin 81 MG Tab.EC PO SCH (08:08)
[2023-02-10] MEDS: Potassium Chloride 20 MEQ Tab.ER PO SCH ×2 (08:08→20:46)
[2023-02-10] MEDS: Pantoprazole 40 MG Tab.CR PO SCH (08:08)
[2023-02-10] MEDS: Gabapentin 600 MG Tab PO SCH (08:08)
[2023-02-10] MEDS: Cholecalciferol (Vitamin D3) 25 MCG Tab PO SCH (08:08)
[2023-02-10] MEDS: Tiotropium Bromide 4 GM Inhalation Spray (2.5mcg/1 dose; 10 doses) INH SCH (08:10)
[2023-02-10] MEDS ORDERED: Bisacodyl 5 MG Tab PO PRN (15:00)
[2023-02-10] MEDS: Nicotine 21 MG/24 Hr Patch TRDERM SCH (18:00)
[2023-02-10] MEDS: Melatonin 3 MG Tab PO SCH (20:46)
[2023-02-10] MEDS: atorvaSTATin 40 MG Tab PO SCH (20:46)
[2023-02-10] MEDS: Thiamine 100 MG Tab PO SCH (20:47)
[2023-02-10] MEDS: Topiramate 50 MG Tab PO SCH (20:47)
[2023-02-10] MEDS: Insulin Glargine,Human Rec. Analog 100 Units/ML 3 ML Pen SUBCUT SCH (20:50)
[2023-02-10] MEDS: Gabapentin 300 MG Cap PO SCH (20:51)
[2023-02-11] MEDS: Levothyroxine 112 MCG Tab PO SCH (06:26)
[2023-02-11] MEDS: Insulin Lispro 100 Unit/ML 3 ML KwikPen SUBCUT SCH ×3 (08:19→18:01)
[2023-02-11] MEDS: Pantoprazole 40 MG Tab.CR PO SCH (08:20)
[2023-02-11] MEDS: Tiotropium Bromide 4 GM Inhalation Spray (2.5mcg/1 dose; 10 doses) INH SCH (08:20)
[2023-02-11] MEDS: Aspirin 81 MG Tab.EC PO SCH (08:20)
[2023-02-11] MEDS: Potassium Chloride 20 MEQ Tab.ER PO SCH ×2 (08:20→20:22)
[2023-02-11] MEDS: Cholecalciferol (Vitamin D3) 25 MCG Tab PO SCH (08:21)
[2023-02-11] MEDS: Gabapentin 600 MG Tab PO SCH (08:22)
[2023-02-11] MEDS: Nicotine 21 MG/24 Hr Patch TRDERM SCH (18:01)
[2023-02-11] MEDS: Thiamine 100 MG Tab PO SCH (20:22)
[2023-02-11] MEDS: Melatonin 3 MG Tab PO SCH (20:22)
[2023-02-11] MEDS: atorvaSTATin 40 MG Tab PO SCH (20:22)
[2023-02-11] MEDS: Topiramate 50 MG Tab PO SCH (20:22)
[2023-02-11] MEDS: Insulin Glargine,Human Rec. Analog 100 Units/ML 3 ML Pen SUBCUT SCH (20:23)
[2023-02-11] MEDS: Gabapentin 300 MG Cap PO SCH (20:29)
[2023-02-11] MEDS: Acetaminophen 325 MG Tab PO PRN (20:29)
[2023-02-11] MEDS: Albuterol 90 MCG/6.7 GM Inhaler INH PRN (20:30)
[2023-02-12] MEDS: Levothyroxine 112 MCG Tab PO SCH (05:18)
[2023-02-12] MEDS: Gabapentin 600 MG Tab PO SCH (08:04)
[2023-02-12] MEDS: Insulin Lispro 100 Unit/ML 3 ML KwikPen SUBCUT SCH ×3 (08:04→17:50)
[2023-02-12] MEDS: Tiotropium Bromide 4 GM Inhalation Spray (2.5mcg/1 dose; 10 doses) INH SCH (08:05)
[2023-02-12] MEDS: Cholecalciferol (Vitamin D3) 25 MCG Tab PO SCH (08:05)
[2023-02-12] MEDS: Potassium Chloride 20 MEQ Tab.ER PO SCH ×2 (08:06→20:57)
[2023-02-12] MEDS: Pantoprazole 40 MG Tab.CR PO SCH (08:06)
[2023-02-12] MEDS: Aspirin 81 MG Tab.EC PO SCH (08:06)
[2023-02-12] MEDS: Acetaminophen 325 MG Tab PO PRN ×2 (13:15→20:56)
[2023-02-12] MEDS: Nicotine 21 MG/24 Hr Patch TRDERM SCH (17:04)
[2023-02-12] MEDS: Gabapentin 300 MG Cap PO SCH (20:56)
[2023-02-12] MEDS: Albuterol 90 MCG/6.7 GM Inhaler INH PRN (20:57)
[2023-02-12] MEDS: Thiamine 100 MG Tab PO SCH (20:57)
[2023-02-12] MEDS: Melatonin 3 MG Tab PO SCH (20:57)
[2023-02-12] MEDS: Insulin Glargine,Human Rec. Analog 100 Units/ML 3 ML Pen SUBCUT SCH (20:57)
[2023-02-12] MEDS: atorvaSTATin 40 MG Tab PO SCH (20:58)
[2023-02-12] MEDS: Topiramate 50 MG Tab PO SCH (20:58)
[2023-02-13] MEDS ORDERED: Levothyroxine 112 MCG Tab PO SCH (06:00)
[2023-02-13] MEDS: Gabapentin 600 MG Tab PO SCH (08:07)
[2023-02-13] MEDS: Insulin Lispro 100 Unit/ML 3 ML KwikPen SUBCUT SCH ×3 (08:08→18:28)
[2023-02-13] MEDS: Pantoprazole 40 MG Tab.CR PO SCH (08:08)
[2023-02-13] MEDS: Cholecalciferol (Vitamin D3) 25 MCG Tab PO SCH (08:08)
[2023-02-13] MEDS: Potassium Chloride 20 MEQ Tab.ER PO SCH ×2 (08:08→20:42)
[2023-02-13] MEDS: Tiotropium Bromide 4 GM Inhalation Spray (2.5mcg/1 dose; 10 doses) INH SCH (08:08)
[2023-02-13] MEDS: Aspirin 81 MG Tab.EC PO SCH (08:08)
[2023-02-13] MEDS: Acetaminophen 325 MG Tab PO PRN ×2 (10:20→22:44)
[2023-02-13] MEDS: Nicotine 21 MG/24 Hr Patch TRDERM SCH (18:29)
[2023-02-13] MEDS: atorvaSTATin 40 MG Tab PO SCH (20:42)
[2023-02-13] MEDS: Topiramate 50 MG Tab PO SCH (20:43)
[2023-02-13] MEDS: Melatonin 3 MG Tab PO SCH (20:43)
[2023-02-13] MEDS: Thiamine 100 MG Tab PO SCH (20:43)
[2023-02-13] MEDS: traZODone 50 MG Tab PO SCH (20:43)
[2023-02-13] MEDS: Insulin Glargine,Human Rec. Analog 100 Units/ML 3 ML Pen SUBCUT SCH (20:50)
[2023-02-13] MEDS: Gabapentin 300 MG Cap PO SCH (20:50)
[2023-02-14] MEDS: Levothyroxine 112 MCG Tab PO SCH (05:29)
[2023-02-14] MEDS: Insulin Lispro 100 Unit/ML 3 ML KwikPen SUBCUT SCH ×3 (08:43→18:14)
[2023-02-14] MEDS: Gabapentin 600 MG Tab PO SCH (08:45)
[2023-02-14] MEDS: Aspirin 81 MG Tab.EC PO SCH (08:45)
[2023-02-14] MEDS: Polyethylene Glycol 3350 Powder 17 GM Packet PO PRN (08:45)
[2023-02-14] MEDS: Cholecalciferol (Vitamin D3) 25 MCG Tab PO SCH (08:46)
[2023-02-14] MEDS: Potassium Chloride 20 MEQ Tab.ER PO SCH ×2 (08:46→21:18)
[2023-02-14] MEDS: Pantoprazole 40 MG Tab.CR PO SCH (08:46)
[2023-02-14] MEDS: Tiotropium Bromide 4 GM Inhalation Spray (2.5mcg/1 dose; 10 doses) INH SCH (08:47)
[2023-02-14] MEDS: Nicotine 21 MG/24 Hr Patch TRDERM SCH (18:14)
[2023-02-14] MEDS: Insulin Glargine,Human Rec. Analog 100 Units/ML 3 ML Pen SUBCUT SCH (21:10)
[2023-02-14] MEDS: atorvaSTATin 40 MG Tab PO SCH (21:18)
[2023-02-14] MEDS: Melatonin 3 MG Tab PO SCH (21:18)
[2023-02-14] MEDS: Gabapentin 300 MG Cap PO SCH (21:18)
[2023-02-14] MEDS: Thiamine 100 MG Tab PO SCH (21:19)
[2023-02-14] MEDS: traZODone 50 MG Tab PO SCH (21:19)
[2023-02-14] MEDS: Topiramate 50 MG Tab PO SCH (21:20)
[2023-02-14] MEDS: Acetaminophen 325 MG Tab PO PRN (21:20)
[2023-02-14] MEDS: Sennosides/Docusate Sodium 50-8.6 MG Tab PO PRN (22:53)
[2023-02-15] MEDS: Levothyroxine 112 MCG Tab PO SCH (05:32)
[2023-02-15] MEDS: Cholecalciferol (Vitamin D3) 25 MCG Tab PO SCH (08:31)
[2023-02-15] MEDS: Potassium Chloride 20 MEQ Tab.ER PO SCH ×2 (08:32→20:16)
[2023-02-15] MEDS: Tiotropium Bromide 4 GM Inhalation Spray (2.5mcg/1 dose; 10 doses) INH SCH (08:32)
[2023-02-15] MEDS: Pantoprazole 40 MG Tab.CR PO SCH (08:32)
[2023-02-15] MEDS: Aspirin 81 MG Tab.EC PO SCH (08:32)
[2023-02-15] MEDS: Insulin Lispro 100 Unit/ML 3 ML KwikPen SUBCUT SCH ×3 (08:33→17:43)
[2023-02-15] MEDS: Gabapentin 600 MG Tab PO SCH (08:35)
[2023-02-15] MEDS: Polyethylene Glycol 3350 Powder 17 GM Packet PO PRN (16:17)
[2023-02-15] MEDS: Nicotine 21 MG/24 Hr Patch TRDERM SCH (17:44)
[2023-02-15] MEDS: Melatonin 3 MG Tab PO SCH (20:16)
[2023-02-15] MEDS: atorvaSTATin 40 MG Tab PO SCH (20:16)
[2023-02-15] MEDS: Gabapentin 300 MG Cap PO SCH (20:17)
[2023-02-15] MEDS: traZODone 50 MG Tab PO SCH (20:17)
[2023-02-15] MEDS: Topiramate 50 MG Tab PO SCH (20:17)
[2023-02-15] MEDS: Acetaminophen 325 MG Tab PO PRN (20:18)
[2023-02-15] MEDS: Thiamine 100 MG Tab PO SCH (20:18)
[2023-02-15] MEDS: Sennosides/Docusate Sodium 50-8.6 MG Tab PO PRN (20:18)
[2023-02-15] MEDS: Insulin Glargine,Human Rec. Analog 100 Units/ML 3 ML Pen SUBCUT SCH (20:21)
[2023-02-16] MEDS: Levothyroxine 112 MCG Tab PO SCH (06:09)
[2023-02-16] MEDS: Insulin Lispro 100 Unit/ML 3 ML KwikPen SUBCUT SCH ×3 (07:48→17:23)
[2023-02-16] MEDS: Aspirin 81 MG Tab.EC PO SCH (08:45)
[2023-02-16] MEDS: Potassium Chloride 20 MEQ Tab.ER PO SCH ×2 (08:45→20:19)
[2023-02-16] MEDS: Pantoprazole 40 MG Tab.CR PO SCH (08:46)
[2023-02-16] MEDS: Tiotropium Bromide 4 GM Inhalation Spray (2.5mcg/1 dose; 10 doses) INH SCH (08:47)
[2023-02-16] MEDS: Cholecalciferol (Vitamin D3) 25 MCG Tab PO SCH (08:48)
[2023-02-16] MEDS: Gabapentin 600 MG Tab PO SCH (08:53)
[2023-02-16] MEDS: Nicotine 21 MG/24 Hr Patch TRDERM SCH (17:27)
[2023-02-16] MEDS: Hydrocortisone 2.5% Crm 30 GM Tube TOP PRN (17:33)
[2023-02-16] MEDS: Topiramate 50 MG Tab PO SCH (20:18)
[2023-02-16] MEDS: Gabapentin 300 MG Cap PO SCH (20:18)
[2023-02-16] MEDS: atorvaSTATin 40 MG Tab PO SCH (20:18)
[2023-02-16] MEDS: Melatonin 3 MG Tab PO SCH (20:19)
[2023-02-16] MEDS: Thiamine 100 MG Tab PO SCH (20:19)
[2023-02-16] MEDS: traZODone 50 MG Tab PO SCH (20:20)
[2023-02-16] MEDS: Insulin Glargine,Human Rec. Analog 100 Units/ML 3 ML Pen SUBCUT SCH (20:22)
[2023-02-17] MEDS: Levothyroxine 112 MCG Tab PO SCH (05:50)
[2023-02-17] MEDS: Aspirin 81 MG Tab.EC PO SCH (09:30)
[2023-02-17] MEDS: Potassium Chloride 20 MEQ Tab.ER PO SCH (09:30)
[2023-02-17] MEDS: Gabapentin 600 MG Tab PO SCH (09:30)
[2023-02-17] MEDS: Pantoprazole 40 MG Tab.CR PO SCH (09:30)
[2023-02-17] MEDS: Tiotropium Bromide 4 GM Inhalation Spray (2.5mcg/1 dose; 10 doses) INH SCH (09:31)
[2023-02-17] MEDS: Cholecalciferol (Vitamin D3) 25 MCG Tab PO SCH (09:31)
[2023-02-17] MEDS: Insulin Lispro 100 Unit/ML 3 ML KwikPen SUBCUT SCH ×2 (09:32→11:45)
[2023-02-17 11:41] VITALS: BP 124/56; PULSE 75
== END 2023-02-17 13:20 | disposition home health service (06) | DRG 947 ==
LOC: FB.MS 08:01
PROVIDERS: ADMIT Student in an Organized Health Care Education/Training Program; ATTEND Family Medicine
DX: R53.1 Weakness (principal); K85.20 Alcohol induced acute pancreatitis without necrosis or infection; F10.139 Alcohol abuse with withdrawal, unspecified; K56.1 Intussusception; I10 Essential (primary) hypertension; E78.00 Pure hypercholesterolemia, unspecified; E11.40 Type 2 diabetes mellitus with diabetic neuropathy, unspecified; F32.A Depression, unspecified; E03.9 Hypothyroidism, unspecified; R29.6 Repeated falls; L30.9 Dermatitis, unspecified; K59.09 Other constipation; E11.65 Type 2 diabetes mellitus with hyperglycemia; R41.0 Disorientation, unspecified; E87.6 Hypokalemia; F41.9 Anxiety disorder, unspecified; J43.9 Emphysema, unspecified; E83.42 Hypomagnesemia; D69.6 Thrombocytopenia, unspecified; Z72.0 Tobacco use; Z98.890 Other specified postprocedural states; Z99.81 Dependence on supplemental oxygen; Z79.82 Long term (current) use of aspirin; Z79.4 Long term (current) use of insulin; Z79.899 Other long term (current) drug therapy
CPT/HCPCS: 51798; 81001; 82947; 97110-GO; 97110-GP; 97112-GO; 97116-GP; 97161-GP; 97530-GO; 97530-GP; 97535-GO; 99305; 99316; A9270-GY; J1815; J1815-GY